=== PATIENT | male | born 1945 | race Caucasian/White ===

== ENCOUNTER 2016-06-20 11:25 | Outpatient (CLI) | payer OTHER ==
--- NOTE | 2016-06-20 14:18 | DIAGNOSTIC IMAGING REPORT ---
PROCEDURE: CT SOFT TISSUE NECK WITH CONT INDICATION: LT NECK LYMPH NODE SWELLING TECHNIQUE: 95 ml of Isovue 300 injected intravenously and axial images were obtained from the skull base through the upper mediastinum with sagittal and coronal reformations. In addition, angled axial oblique images were obtained ( avoiding dental hardware). COMPARISON: Neck ultrasound on 06/19/2016 FINDINGS: There is a 2.4 x 2.7 x 3.5 cm cystic mass with wall enhancement anterior to the left sternocleidomastoid muscle which itself appears slightly enlarged. There is no submandibular, right jugular or posterior cervical adenopathy. There is slight medial displacement of the carotid artery and jugular vein. There is thickening of the left aryepiglottic fold. Normal airway. Normal lung apices. The parotid, submandibular and thyroid glands are normal. Complete opacification with expansion of the right maxillary sinus with erosion of the medial wall, middle and inferior turbinates. Sub total opacification of the left maxillary and moderate ethmoid sinus disease. Mild degenerative changes of the spine. IMPRESSION: 1. Cystic mass anterior to the left sternocleidomastoid muscle which is slightly enlarged, without adenopathy. There is may represent a branchial cleft cyst. Absence of lymphadenopathy makes a necrotic lymph node or sternocleidomastoid muscle abscess less likely. 2. Thickening of the left aryepiglottic fold. Recommend endoscopy 3. Complete opacification of the right maxillary sinus with expansion and the erosion of the medial wall, middle and inferior turbinates. This may represent a mucocele but neoplasm is also a consideration 4. Recommend ENT consultation 5. Results discussed with DIEGO Barron All CT scans at this facility use dose modulation, iterative reconstruction, and/or weight-based dosing when appropriate to reduce radiation dose to as low as reasonably achievable.
== END 2016-06-20 23:00 ==
LOC: CT SRH 11:25
DX: R22.1 Localized swelling, mass and lump, neck (principal); R93.8 Abnormal findings on diagnostic imaging of other specified body structures